=== PATIENT | male | born 1980 ===

== ENCOUNTER 2023-01-19 14:58 | Emergency (ER) | payer OTHER, MEDICAID ==
[2023-01-19] MEDS ORDERED: cefTRIAXone 1 GM, Lidocaine 1% 2.1 ML IM ONE ×2 (15:26)
== END 2023-01-19 16:21 | disposition home or self-care (01) ==
LOC: JD.ED 14:58
DX: J18.9 Pneumonia, unspecified organism (principal); Z79.899 Other long term (current) drug therapy; Z88.1 Allergy status to other antibiotic agents
CPT/HCPCS: 96372; 99283; J0696; J3490